=== PATIENT | female | born 1975 | race Caucasian/White ===

== ENCOUNTER 2023-10-03 16:42 | Observation (INO) ==
[2023-10-03] MEDS ORDERED: PROVENTIL NEB TX 0.083% 2.5MG/ 3ML ONE (19:14)
[2023-10-03] MEDS: PROVENTIL NEB TX 0.083% 2.5MG/ 3ML NEB SCH (20:14)
[2023-10-03] MEDS ORDERED: NORCO 5/325 MG TAB PO PRN (20:18)
[2023-10-03 21:01] LABS: BASOPHILS # (AUTO) 0.1 X10^3/uL (0.0-0.1); BASOPHILS % (AUTO) 0.9 % (0.2-1.0); HEMATOCRIT 33.7 % (36.0-47.0); HEMOGLOBIN 11.1 g/dL (12.0-16.0); LYMPHOCYTES # (AUTO) 2.8 X10^3/uL (1.3-2.9); MEAN CORPUSCULAR HEMOGLOBIN 29.2 pg (27.0-34.0); MEAN CORPUSCULAR HGB CONC 32.9 g/dL (33.0-35.0); MEAN CORPUSCULAR VOLUME 88.8 fL (80.0-100.0); MEAN PLATELET VOLUME 8.6 fL (7.4-11.0); MONOCYTES # (AUTO) 0.5 x10^3/uL (0.3-0.8); MONOCYTES % (AUTO) 7.4 % (0.0-13.0); NEUTROPHILS # (AUTO) 2.9 x10^3/uL (2.2-4.8); NEUTROPHILS % (AUTO) 46.7 % (42.0-75.0); PLATELET COUNT 321 X10^3/uL (150.0-450.0); RED CELL DISTRIBUTION WIDTH 14.1 % (11.6-16.5); WHITE BLOOD COUNT 6.3 X10^3/uL (3.6-10.0)
[2023-10-03 21:18] VITALS: BMI 27.8
[2023-10-03] MEDS: NICOTINE PATCH TD SCH (21:18)
[2023-10-03 21:22] LABS: ALANINE AMINOTRANSFERASE 19 Units/L (12-78); ALBUMIN 4.1 g/dL (3.4-5.0); ALKALINE PHOSPHATASE 136 Units/L (46-116); ASPARTATE AMINO TRANSFERASE 16 Units/L (15-37); BLOOD UREA NITROGEN 8 mg/dL (7-18); CALCIUM 8.9 mg/dL (8.5-10.1); CARBON DIOXIDE 26.1 mmol/L (21-32); CHLORIDE 104 mmol/L (98-107); COR NA(FOR HYPERGLY) 142 mmol/L (136-145); CREATININE 1.09 mg/dL (0.55-1.02); GLUCOSE 133 mg/dL (65-99); POTASSIUM 3.8 mmol/L (3.5-5.1); SODIUM 141 mmol/L (136-145); TOTAL PROTEIN 8.2 g/dL (6.4-8.2); eGFR NON BLACK RACES 57 (>60)
[2023-10-03] MEDS: NS 1,000 ML IV 1,000 ML IV SCH (21:23)
[2023-10-03] MEDS: NORCO 7.5/325 MG TAB PO PRN (21:23)
[2023-10-03] MEDS: ROCEPHIN VIAL 1 GRAM 1 G in NS 100 ML IV 100 ML IV SCH (21:23)
[2023-10-03] MEDS ORDERED: RESTORIL CAP 15 MG PO PRN (21:45)
[2023-10-03 21:57] LABS: BILIRUBIN,URINE NEGATIVE (NEGATIVE); BLOOD/HEMOGLOBIN,URINE 5+ (NEGATIVE); GLUCOSE, URINE NEGATIVE (NEGATIVE); KETONES,URINE NEGATIVE (NEGATIVE); LEUKOCYTE ESTERASE ,URINE 2+ (NEGATIVE); NITRITES,URINE NEGATIVE (NEGATIVE); PROTEIN,URINE NEGATIVE (NEGATIVE); UROBILINOGEN,URINE NORMAL (NORMAL)
[2023-10-03 22:08] LABS: APPEARANCE,URINE SLIGHTLY HAZY (CLEAR); COLOR,URINE PALE YELLOW (YELLOW)
[2023-10-03 22:09] LABS: BACTERIA,URINE TRACE /HPF (NEGATIVE); RBC,URINE 30-50 /HPF (0-3); SQUAMOUS EPITHELIAL CELL,UR FEW /HPF (NEGATIVE)
[2023-10-03] MEDS: AMBIEN PO PRN (22:16)
[2023-10-03] MEDS: MORPHINE SULFATE INJ 2 MG INJ IVP PRN (22:51)
[2023-10-04] MEDS: ZOFRAN INJ 4 MG VIAL IVP PRN (02:10)
[2023-10-04 05:04] LABS: BASOPHILS % (AUTO) 0.3 % (0.2-1.0); EOSINOPHILS % (AUTO) 0.5 % (0.9-2.9); HEMATOCRIT 29.1 % (36.0-47.0); HEMOGLOBIN 9.6 g/dL (12.0-16.0); LYMPHOCYTES # (AUTO) 1.2 X10^3/uL (1.3-2.9); LYMPHOCYTES % (AUTO) 29.5 % (21.0-51.0); MEAN CORPUSCULAR HEMOGLOBIN 29.3 pg (27.0-34.0); MEAN CORPUSCULAR HGB CONC 33.1 g/dL (33.0-35.0); MEAN CORPUSCULAR VOLUME 88.5 fL (80.0-100.0); MEAN PLATELET VOLUME 8.2 fL (7.4-11.0); MONOCYTES # (AUTO) 0.5 x10^3/uL (0.3-0.8); MONOCYTES % (AUTO) 11.6 % (0.0-13.0); NEUTROPHILS # (AUTO) 2.4 x10^3/uL (2.2-4.8); NEUTROPHILS % (AUTO) 58.1 % (42.0-75.0); PLATELET COUNT 274 X10^3/uL (150.0-450.0); RED BLOOD COUNT 3.29 X10^6/uL (3.5-5.4); RED CELL DISTRIBUTION WIDTH 13.9 % (11.6-16.5); WHITE BLOOD COUNT 4.1 X10^3/uL (3.6-10.0)
[2023-10-04 05:13] LABS: ALANINE AMINOTRANSFERASE 17 Units/L (12-78); ALBUMIN 3.2 g/dL (3.4-5.0); ALKALINE PHOSPHATASE 115 Units/L (46-116); ASPARTATE AMINO TRANSFERASE 14 Units/L (15-37); BLOOD UREA NITROGEN 8 mg/dL (7-18); CALCIUM 8.2 mg/dL (8.5-10.1); CARBON DIOXIDE 25.6 mmol/L (21-32); CHLORIDE 108 mmol/L (98-107); COR CA(FOR HYPOALB) 8.8 mg/dL (8.5-10.1); CREATININE 1.03 mg/dL (0.55-1.02); GLUCOSE 109 mg/dL (65-99); MAGNESIUM 1.9 mg/dL (2.0-2.9); POTASSIUM 4.4 mmol/L (3.5-5.1); SODIUM 142 mmol/L (136-145); TOTAL PROTEIN 6.7 g/dL (6.4-8.2); eGFR NON BLACK RACES > 60 (>60)
[2023-10-04] MEDS: NS 1,000 ML IV 1,000 ML with MAGNESIUM SULFATE 50% INJ VIAL 1 G IV SCH (08:58)
[2023-10-04] MEDS ORDERED: ZANAFLEX PO PRN (09:32)
--- NOTE | 2023-10-04 09:46 | DR.H&P ---
H&P History & Physical for Day of: H&P Date: 10/03/23 Allergies Allergies Allergy/AdvReac Type Severity Reaction Status Date / Time codeine Allergy Verified 07/02/22 20:12 ketorolac [From Toradol] Allergy Verified 07/02/22 20:12 metoclopramide [From Reglan] Allergy Verified 07/02/22 20:12 History of Present Illness History of Present Illness: PT IS 48 WF DIRECT ADMIT FROM DR BAPTISTE OFFICE WITH DEHYDRATION AND ACUTE FLANK PAIN, UTI AND GROSS HEMATURIA. PT HAS PMH OF HYPERLIPIDEMIA, GERD, OA, KULDEEP AND INSOMNIA. PT ADMITTED FOR EVALUATION AND TREAMENT OF ACUTE ILLNESS. Past Medical History Past Medical History: Migraines Past Surgical History Surgical History: Bowel Resection and Hysterectomy Family History Family Medical History: Cancer and Coronary Artery Disease Social History Does patient currently use any type of tobacco product: No Have you used tobacco products in the last 12 months: No Type of Tobacco Use: None Does any household member use tobacco: No Alcohol Use: None Drug Use: None Medications Home Medications: Home Medications Medication Instructions Recorded Confirmed Type albuterol sulfate 90 mcg/actuation 1 inh inhalation QID 11/13/22 10/03/23 History aerosol inhaler gabapentin 800 mg tablet 800 mg PO QID 11/13/22 10/03/23 History ibuprofen 800 mg tablet 1 tab PO TID PRN 11/13/22 10/03/23 History omeprazole 40 mg capsule,delayed 40 mg PO QDAY 11/13/22 10/03/23 History release sertraline 50 mg tablet 50 mg PO QDAY 11/13/22 10/03/23 History tizanidine 4 mg tablet 4 mg PO BID PRN 11/13/22 10/03/23 History atorvastatin 20 mg tablet 20 mg PO QDAY 10/03/23 10/03/23 History buspirone 10 mg tablet 10 mg PO BID 10/03/23 10/03/23 History hydrocodone 7.5 mg-acetaminophen 1 tab PO QDAY PRN 10/03/23 10/03/23 History 325 mg tablet zolpidem 10 mg tablet 10 mg PO QPM PRN 10/03/23 10/03/23 History Labs 10/04/23 04:48 10/04/23 04:48 Labs: 10/03/23 21:38 Urine,Clean Catch Urine Culture - Preliminary Laboratory WBC 4.1 X10^3/uL (3.6-10.0) 10/04/23 04:48 RBC 3.29 X10^6/uL (3.5-5.4) L 10/04/23 04:48 Hgb 9.6 g/dL (12.0-16.0) L 10/04/23 04:48 Hct 29.1 % (36.0-47.0) L 10/04/23 04:48 MCV 88.5 fL (80.0-100.0) 10/04/23 04:48 MCH 29.3 pg (27.0-34.0) 10/04/23 04:48 MCHC 33.1 g/dL (33.0-35.0) 10/04/23 04:48 RDW 13.9 % (11.6-16.5) 10/04/23 04:48 Plt Count 274 X10^3/uL (150.0-450.0) 10/04/23 04:48 MPV 8.2 fL (7.4-11.0) 10/04/23 04:48 Neut % (Auto) 58.1 % (42.0-75.0) 10/04/23 04:48 Lymph % (Auto) 29.5 % (21.0-51.0) 10/04/23 04:48 Roane % (Auto) 11.6 % (0.0-13.0) 10/04/23 04:48 Eos % (Auto) 0.5 % (0.9-2.9) L 10/04/23 04:48 Baso % (Auto) 0.3 % (0.2-1.0) 10/04/23 04:48 Neut # (Auto) 2.4 x10^3/uL (2.2-4.8) 10/04/23 04:48 Lymph # (Auto) 1.2 X10^3/uL (1.3-2.9) L 10/04/23 04:48 Roane # (Auto) 0.5 x10^3/uL (0.3-0.8) 10/04/23 04:48 Eos # (Auto) 0.0 x10^3/uL (0.0-0.2) 10/04/23 04:48 Baso # (Auto) 0.0 X10^3/uL (0.0-0.1) 10/04/23 04:48 Absolute Nucleated RBC 0.1 /100WBC 10/04/23 04:48 Sodium 142 mmol/L (136-145) 10/04/23 04:48 Corrected Sodium TNP 10/04/23 04:48 Potassium 4.4 mmol/L (3.5-5.1) 10/04/23 04:48 Chloride 108 mmol/L (98-107) H 10/04/23 04:48 Carbon Dioxide 25.6 mmol/L (21-32) 10/04/23 04:48 BUN 8 mg/dL (7-18) 10/04/23 04:48 Creatinine 1.03 mg/dL (0.55-1.02) H 10/04/23 04:48 Est GFR (MDRD) Af Amer > 60 (>60) 10/04/23 04:48 Est GFR (MDRD) Non-Af > 60 (>60) 10/04/23 04:48 Glucose 109 mg/dL (65-99) H 10/04/23 04:48 Calcium 8.2 mg/dL (8.5-10.1) L 10/04/23 04:48 Corrected Calcium 8.8 mg/dL (8.5-10.1) 10/04/23 04:48 Magnesium 1.9 mg/dL (2.0-2.9) L 10/04/23 04:48 Total Bilirubin 0.20 mg/dL (0.2-1.0) 10/04/23 04:48 AST 14 Units/L (15-37) L 10/04/23 04:48 ALT 17 Units/L (12-78) 10/04/23 04:48 Alkaline Phosphatase 115 Units/L (46-116) 10/04/23 04:48 Total Protein 6.7 g/dL (6.4-8.2) 10/04/23 04:48 Albumin 3.2 g/dL (3.4-5.0) L 10/04/23 04:48 Globulin 3.5 g/dL (2.5-4.5) 10/04/23 04:48 Albumin/Globulin Ratio 0.9 Ratio (1.1-2.1) L 10/04/23 04:48 Specimen Type Clean catch urine 10/03/23 21:38 Urine Color Pale yellow (YELLOW) 10/03/23 21:38 Urine Appearance Slightly hazy (CLEAR) 10/03/23 21:38 Urine pH 7.0 (5.0 - 8.0) 10/03/23 21:38 Ur Specific Irwin 1.005 (1.000-1.030) 10/03/23 21:38 Urine Protein Negative (NEGATIVE) 10/03/23 21:38 Urine Glucose (UA) Negative (NEGATIVE) 10/03/23 21:38 Urine Ketones Negative (NEGATIVE) 10/03/23 21:38 Urine Blood 5+ (NEGATIVE) 10/03/23 21:38 Urine Nitrite Negative (NEGATIVE) 10/03/23 21:38 Urine Bilirubin Negative (NEGATIVE) 10/03/23 21:38 Urine Urobilinogen Normal (NORMAL) 10/03/23 21:38 Ur Leukocyte Esterase 2+ (NEGATIVE) 10/03/23 21:38 Urine RBC 30-50 /HPF (0-3) A 10/03/23 21:38 Urine WBC 10-20 /HPF (0-5) A 10/03/23 21:38 Ur Squamous Epith Cells Few /HPF (NEGATIVE) 10/03/23 21:38 Urine Bacteria Trace /HPF (NEGATIVE) 10/03/23 21:38 Ur Culture Indicated? Yes/culture set up 10/03/23 21:38 Review of Systems Constitutional: No Symptoms Reported Eyes: No Symptoms Reported ENT: No Symptoms Reported Respiratory: No Symptoms Reported Cardiovascular: No Symptoms Reported Gastrointestinal: Abdominal Pain Genitourinary: Hematuria Musculoskeletal: Back Pain Skin: No Symptoms Reported Neurological: No Symptoms Reported Physical Exam Vital Signs: Vital Signs Temperature 97.5 F Temperature 98.7 F Pulse Rate [Right Radial] 60 Pulse Rate [Right Radial] 62 Respiratory Rate 18 Respiratory Rate 19 Respiratory Rate 18 Respiratory Rate 20 Blood Pressure [Right Arm] 84/52 Blood Pressure [Right Arm] 99/61 Blood Pressure [Left Arm] 92/60 O2 Sat by Pulse Oximetry 100 O2 Sat by Pulse Oximetry 99 Oriented: Normal Eyes: Normal Throat: Normal Respiratory: RLL Diminished and LLL Diminished Cardiovascular: Normal Auscultation: Bowel Sounds: Normal Palpation: Normal Tenderness: Other (BILATERAL CVA TENDERNESS) Musculoskeletal: Back:Thoracic and Back:Lumbar Psychiatric: Anxiety Affect: Anxious Speech Pattern: Clear Assessment/Plan (1) Hematuria: Narrative Support Text: ADMIT, IV HYDRATION , PAIN CONTROL CT ABD/PELVIS RO KIDNEY STONE IV ROCEPHIN, ADMISSION LABS WITH UA AND UC VERIFY HOME MEDICATION, NPO UNTIL AFTER CT Status: Acute (2) UTI (urinary tract infection): Status: Acute (3) KULDEEP (generalized anxiety disorder): Status: Acute (4) GERD (gastroesophageal reflux disease): Status: Acute (5) Flank pain, acute: Status: Acute
[2023-10-04] MEDS: CONSULT PHARMACY - POTASSIUM & MAGNESIUM XX ONE (09:50)
--- NOTE | 2023-10-04 10:14 | CT ---
EXAM:ABDOMEN/PELVIS W/O CONHISTORY:LEFT FLANK PAIN, HX OF KIDNEY STONES; HYSTER, GB, APPEYCOMPARISON:None.TECHNIQUE:Multiple axial images of the abdomen and pelvis were obtained from the lung bases to the pubic symphysis without the administration of IV contrast. Dose reduction techniques including Automated Exposure Control (AEC) and adjustment of mA and kV were utilized.FINDINGS:Partially calcified subcentimeter granuloma right lower lobe. No pulmonary infiltrates identified. No free air is seen below the diaphragm. Normal heart size is observed. No acute abnormalities with respect to the liver. Gallbladder is surgically absent. No acute abnormalities of the spleen, pancreas or adrenal glands. The spleen is upper range of normal caliber measuring 12.5 cm in length. No radiopaque stones associated with right or left kidney. No evidence of hydronephrosis. Bilateral ureters remain decompressed to the level of the urinary bladder. There is no asymmetric bladder wall thickening observed.No evidence of bowel obstruction moderate stool accumulation is demonstrated within colon from the rectum to the level of the mid transverse colon. Proximal to this region of interest, there is accumulation of fluid within the right colon and distal small bowel segments without pathologic distention. Overall, no aggressively thickened or acutely inflamed bowel segments are demonstrated, within limitations of a noncontrast evaluation. There are no enlarged intra-lymph nodes. No free fluid is identified.The appendix is surgically absent by history.The uterus is surgically absent and there is no pathologic adnexal asymmetry. No aggressive bony lesions or acute osseous abnormalities are identified.IMPRESSION:No radiopaque genitourinary calculi or evidence of obstruction associated with left or right kidneyGeneralized constipation affecting the majority of the colon associated with the accumulation of fluid within the right colon and distal small bowel.No localizing source of acute inflammation within the abdomen or pelvis within limitations of a noncontrast evaluationAdditional chronic and postsurgical related imaging findings are detailed aboveTHIS IS AN ELECTRONICALLY VERIFIED FINAL REPORT10/04/2023 10:11 AM - Electronically signed by Ancelmo Flowers MD
[2023-10-04] MEDS: PriLOSEC PO SCH (10:38)
[2023-10-04] MEDS: NEURONTIN CAP 400 MG PO SCH (13:58)
[2023-10-05 05:34] LABS: BASOPHILS % (AUTO) 0.4 % (0.2-1.0); EOSINOPHILS % (AUTO) 0.5 % (0.9-2.9); HEMATOCRIT 28.3 % (36.0-47.0); HEMOGLOBIN 9.3 g/dL (12.0-16.0); LYMPHOCYTES % (AUTO) 30.2 % (21.0-51.0); MEAN CORPUSCULAR HEMOGLOBIN 29.2 pg (27.0-34.0); MEAN CORPUSCULAR HGB CONC 32.9 g/dL (33.0-35.0); MEAN CORPUSCULAR VOLUME 88.7 fL (80.0-100.0); MEAN PLATELET VOLUME 8.5 fL (7.4-11.0); MONOCYTES # (AUTO) 0.3 x10^3/uL (0.3-0.8); MONOCYTES % (AUTO) 9.9 % (0.0-13.0); PLATELET COUNT 272 X10^3/uL (150.0-450.0); RED BLOOD COUNT 3.19 X10^6/uL (3.5-5.4); WHITE BLOOD COUNT 3.5 X10^3/uL (3.6-10.0)
[2023-10-05 05:51] LABS: ALANINE AMINOTRANSFERASE 14 Units/L (12-78); ALBUMIN 2.8 g/dL (3.4-5.0); ALKALINE PHOSPHATASE 107 Units/L (46-116); ASPARTATE AMINO TRANSFERASE 11 Units/L (15-37); BLOOD UREA NITROGEN 6 mg/dL (7-18); CALCIUM 7.9 mg/dL (8.5-10.1); CARBON DIOXIDE 26.9 mmol/L (21-32); CHLORIDE 109 mmol/L (98-107); COR CA(FOR HYPOALB) 8.9 mg/dL (8.5-10.1); COR NA(FOR HYPERGLY) 143 mmol/L (136-145); CREATININE 1.02 mg/dL (0.55-1.02); GLUCOSE 111 mg/dL (65-99); POTASSIUM 4.1 mmol/L (3.5-5.1); SODIUM 143 mmol/L (136-145); TOTAL PROTEIN 6.2 g/dL (6.4-8.2); eGFR NON BLACK RACES > 60 (>60)
[2023-10-05] MEDS: LIPITOR TAB 20 MG PO SCH (09:00)
[2023-10-05] MEDS: ZOLOFT PO SCH (09:00)
[2023-10-05] MEDS: RELISTOR SC ONE (14:02)
[2023-10-06 05:35] LABS: HEMOGLOBIN 9.2 g/dL (12.0-16.0); PLATELET COUNT 273 X10^3/uL (150.0-450.0)
[2023-10-06 05:41] LABS: BASOPHILS % (AUTO) 0.2 % (0.2-1.0); EOSINOPHILS % (AUTO) 0.3 % (0.9-2.9); HEMATOCRIT 27.6 % (36.0-47.0); LYMPHOCYTES # (AUTO) 1.2 X10^3/uL (1.3-2.9); LYMPHOCYTES % (AUTO) 31.1 % (21.0-51.0); MEAN CORPUSCULAR HEMOGLOBIN 29.6 pg (27.0-34.0); MEAN CORPUSCULAR HGB CONC 33.4 g/dL (33.0-35.0); MEAN CORPUSCULAR VOLUME 88.7 fL (80.0-100.0); MEAN PLATELET VOLUME 8.5 fL (7.4-11.0); MONOCYTES # (AUTO) 0.3 x10^3/uL (0.3-0.8); MONOCYTES % (AUTO) 9.3 % (0.0-13.0); NEUTROPHILS # (AUTO) 2.2 x10^3/uL (2.2-4.8); NEUTROPHILS % (AUTO) 59.1 % (42.0-75.0); RED BLOOD COUNT 3.12 X10^6/uL (3.5-5.4); RED CELL DISTRIBUTION WIDTH 13.8 % (11.6-16.5); WHITE BLOOD COUNT 3.7 X10^3/uL (3.6-10.0)
[2023-10-06 05:47] LABS: ALANINE AMINOTRANSFERASE 13 Units/L (12-78); ALBUMIN 2.9 g/dL (3.4-5.0); ALKALINE PHOSPHATASE 105 Units/L (46-116); ASPARTATE AMINO TRANSFERASE 11 Units/L (15-37); BLOOD UREA NITROGEN 5 mg/dL (7-18); CALCIUM 8.3 mg/dL (8.5-10.1); CARBON DIOXIDE 26.6 mmol/L (21-32); CHLORIDE 109 mmol/L (98-107); COR CA(FOR HYPOALB) 9.2 mg/dL (8.5-10.1); GLUCOSE 85 mg/dL (65-99); POTASSIUM 4.4 mmol/L (3.5-5.1); SODIUM 144 mmol/L (136-145); TOTAL PROTEIN 6.3 g/dL (6.4-8.2); eGFR NON BLACK RACES 56 (>60)
[2023-10-06 12:08] VITALS: BP 145/81; PULSE 74; RESP 20; TEMP 98.6; O2SAT 96
== END 2023-10-06 12:05 | disposition home or self-care (01) ==
LOC: MED/SURG
PROVIDERS: ADMIT Internal Medicine; ATTEND Internal Medicine
DX: R10.84 Generalized abdominal pain; M19.90 Unspecified osteoarthritis, unspecified site; R50.9 Fever, unspecified; K21.9 Gastro-esophageal reflux disease without esophagitis; R31.0 Gross hematuria; F41.1 Generalized anxiety disorder; E78.5 Hyperlipidemia, unspecified; E86.0 Dehydration; Z87.442 Personal history of urinary calculi; Z20.822 Contact with and (suspected) exposure to COVID-19; K59.09 Other constipation; E83.42 Hypomagnesemia; N39.0 Urinary tract infection, site not specified